=== PATIENT | female | born 1990 | race Caucasian/White ===

== ENCOUNTER → 2020-12-07 | Outpatient (REF) | payer OTHER ==
[2020-12-07 13:54] LABS: HEMATOCRIT 37.4 % (36.0-47.0); MEAN CORPUSCULAR HEMOGLOBIN 30.9 pg (27.0-33.0); MEAN CORPUSCULAR HGB CONC 32.1 g/dl (32.0-36.5); MEAN CORPUSCULAR VOLUME 96.4 fl (80.0-96.0); PLATELET COUNT, AUTOMATED 259 10^3/uL (150-450); RED BLOOD COUNT 3.88 10^6/uL (4.00-5.40); WHITE BLOOD COUNT 8.7 10^3/uL (4.0-10.0)
[2020-12-07 15:38] LABS: CHLAMYDIA DNA AMPLIFICATION NEGATIVE (NEGATIVE); GC DNA AMPLIFICATION NEGATIVE (NEGATIVE)
[2020-12-07 16:18] LABS: CREATININE,RANDOM URINE 18.1 MG/DL; TOTAL PROTEIN,RANDOM URINE < 5.0 MG/DL (0.0-12.0)
[2020-12-07 16:22] LABS: ALT/SGPT 12 U/L (12-78); BILIRUBIN,TOTAL 0.3 MG/DL (0.2-1.0); CREATININE FOR GFR 0.57 MG/DL (0.55-1.30); GLOMERULAR FILTRATION RATE > 60.0 (>60); GLUCOSE CHALLENGE TEST 1 HOUR 134 MG/DL (LESS THAN 140); LDH LACTATE DEHYDROGENASE 150 U/L (84-246)
[2020-12-07 17:14] LABS: HEPATITIS C VIRUS ABY INDEX < 0.0 INDEX (<0.8); HIV 1&2 SCREEN CENTAUR NEGATIVE (NEGATIVE)
== END ==
LOC: M PLALAB 08:38
PROVIDERS: ATTEND Advanced Practice Midwife
DX: O30.042 Twin pregnancy, dichorionic/diamniotic, second trimester (principal); Z3A.15 15 weeks gestation of pregnancy

== ENCOUNTER → 2020-12-07 | Outpatient (CLI) | payer OTHER ==
--- NOTE | 2020-12-07 09:03 | REP ---
INDICATION: TWIN GESTATION,DATING Twin gestation. COMPARISON: None. TECHNIQUE: Transabdominal obstetrical ultrasound with color Doppler evaluation FINDINGS: Examination demonstrates dichorionic diamniotic twin gestation. Cervix measures 3.0 cm in length and appears closed. Concordant growth is noted. Gestational age by LMP at 15 weeks 5 days with estimated date of delivery 05/26/2021. TWIN A: Twin A identified in transverse presentation. Placenta is noted posterior and grade 0 without evidence for placenta previa or abruption. motion is appreciated. FHR equals 149 beats per minute. BPD: 3.1 cm at 15 weeks; 5 days HC: 11.5 cm at 15 weeks; 4 days AC: 9.6 cm at 15 weeks; 5 days FL: 1.6 cm at 14 weeks; 5 days HL: 1.7 cm at 14 weeks; 5 days HC/AC ratio: 1.20 Gestational age by current measurements: 15 weeks 2 days. Estimated weight 119 grams (17th percentile). Limited anatomical assessment without obvious abnormality. TWIN B: Twin B identified in transverse presentation. Placenta is noted posterior and grade 0 without evidence for placenta previa or abruption. motion is appreciated. FHR equals 149 beats per minute. BPD: 3.1 cm at 15 weeks; 5 days HC: 11.5 cm at 15 weeks; 4 days AC: 9.6 cm at 15 weeks; 5 days FL: 1.6 cm at 14 weeks; 5 days HL: 1.7 cm at 14 weeks; 5 days HC/AC ratio: 1.20 Gestational age by current measurements: 15 weeks 2 days. Estimated weight 119 grams (17th percentile). Limited anatomical assessment without obvious abnormality. IMPRESSION: Diamniotic dichorionic twin gestation demonstrating appropriate concordant growth. No gross abnormalities are identified. Complete anatomical assessment should be performed at 19-20 weeks. <Electronically signed by Bandar Awad > 12/07/20 [id number]
== END ==
LOC: M WHC 08:09
PROVIDERS: ATTEND Advanced Practice Midwife
DX: O30.042 Twin pregnancy, dichorionic/diamniotic, second trimester (principal); Z3A.15 15 weeks gestation of pregnancy

== ENCOUNTER → 2020-12-13 | Outpatient (CLI) | payer OTHER | LOC: M LAB 07:34 | PROVIDERS: ATTEND Advanced Practice Midwife | DX: Z34.91 Encounter for supervision of normal pregnancy, unspecified, first trimester (principal); Z36.89 Encounter for other specified antenatal screening ==

== ENCOUNTER → 2020-12-14 | Outpatient (CLI) | payer OTHER | LOC: M WHC 15:32 | PROVIDERS: ATTEND Obstetrics & Gynecology | DX: O30.042 Twin pregnancy, dichorionic/diamniotic, second trimester (principal) ==

== ENCOUNTER → 2020-12-16 | Outpatient (CLI) | payer OTHER | LOC: M PLALAB 14:32 | PROVIDERS: ATTEND Obstetrics & Gynecology | DX: Z34.82 Encounter for supervision of other normal pregnancy, second trimester (principal); Z3A.00 Weeks of gestation of pregnancy not specified ==

== ENCOUNTER 2021-01-07 16:05 | Outpatient (CLI) | payer OTHER ==
[~2021-01-07] VITALS: Ht 165.1 cm; Wt 110.3 kg
[2021-01-07 16:18] VITALS: BP 104/59
[2021-01-07] MEDS ORDERED: PRENTAB9 PO (17:01)
[2021-01-07] MEDS ORDERED: MAPA500T2 PO (17:01)
[2021-01-07] MEDS ORDERED: ASPI81CH33 PO (17:01)
--- NOTE | 2021-01-07 17:07 | IPNPDOC ---
Text Note Date of Service The patient was seen on 01/07/21. NOTE Outpatient 30yo BERNADETTE 05/26/2021. Presents @ 20w1d with complaints of cramping and pink discharge when wiping. Known di/di gestation. Hx significant for 4th threatened PTL @ 22wks. Pt reports she was 4cm at that time. Ultimately delivered @ 33wks. Appears in no distress No obvious contractions on monitor Viable active di/di twin gestation on bedside sono. FH and FM x 2 Spec exam - cervix visually LTC. No evidence of bleeding. SVE - dimple, moderate/firm texture/ long and OOP. Urine C&S and stat sono with TVUS ordered. Will update Dr Parker. VS,Fishbone, I+O VS, Fishbone, I+O Vital Signs Date Time Temp Pulse Resp B/P (MAP) Pulse Ox O2 Delivery O2 Flow Rate FiO2 01/07/21 16:18 81 104/59 (74) Annita Frank CNM Jan 07, 2021 17:07
--- NOTE | 2021-01-07 18:56 | IPNPDOC ---
Text Note Date of Service The patient was seen on 01/07/21. NOTE Jiffy report reviewed with Dr Elena Jordan 4.4cm, closed. No funneling Pt reports vague irregular cramping at this time Discharged home. Routine precautions. Has appt next Sunday. Instructed pt to reschedule her anatomy scan next Sunday for 2-3 weeks for f /u. Pt verbalized understanding. VS,Fishbone, I+O VS, Fishbone, I+O Vital Signs Date Time Temp Pulse Resp B/P (MAP) Pulse Ox O2 Delivery O2 Flow Rate FiO2 01/07/21 16:18 81 104/59 (74) Annita Frank CNM Jan 07, 2021 18:56
--- NOTE | 2021-01-07 19:59 | REPVR ---
PROCEDURE INFORMATION: Exam: US Plus Detailed Evaluation, First Gestation, Transabdominal Exam date and time: 01/07/2021 5:20 PM Clinical indication: Lmp or gestational age (in weeks): 20 weeks 1 d; Other: Spotting; ; Additional info: Twin gestation, bleeding. Cervical length TECHNIQUE: Imaging protocol: Real time transabdominal uterus, including and maternal evaluation plus detailed anatomic examination with image documentation. First gestation. COMPARISON: No relevant prior studies available. FINDINGS: Gestation: Twin intrauterine gestation. Dichorionic/diamniotic. heart rate: Twin A: 157 bpm Presentation: Breech, left inferior. Placenta: Unremarkable. No subchorionic bleed. Placenta is posterior. Amniotic fluid: Amniotic fluid is normal for gestational age. ANATOMY: Brain parenchyma: Normal Midline falx: Normal Cerebellum: 2 cm. Normal Cerebral ventricles: 6 mm. Normal 3rd ventricle: Not visualized. 4th ventricle: Not visualized. Cisterna magna: Normal. Septum pellucidum: Not visualized. Coronal face including nose, lips and lens: Normal Upper lip and nose: Normal Neck: Normal Aortic arch: Obscured Heart four-chamber view, heart size and position- suboptimal. Heart three-vessel view: Not visualized Heart three-vessel trachea view: Not visualized Heart right ventricular outflow tract: Normal Heart left ventricular outflow tract: Normal superior and inferior vena cava: Not visualized diaphragm: Normal gallbladder: Not visualized liver: Normal as visualized kidneys: Normal renal arteries: Not visualized stomach: Normal urinary bladder: Normal Spine: Partially obscured. Spine shape and curvature: Partially obscured. Integrity soft tissue overlying spine: Partially obscured. Ribs: Partially obscured. Umbilical cord insertion site into the abdomen: normal Umbilical cord vessel number: Normal three-vessel cord Arms and hands: Normal Legs and feet: Normal abdominal wall: Normal external genitalia: Male BIOMETRY: Gestational age (AUA): 20 weeks 3 days Estimated due date (AUA): 05/26/2021 Estimated weight: 345 g Estimated weight percentile: Not calculated. Biparietal diameter: 20 weeks 6 days Head circumference: 20 weeks 4 days Abdominal circumference: 20 weeks 4 days Femur length: 20 weeks 0 days MATERNAL ANATOMY: Uterus: Unremarkable. Cervix: 4.4 cm, no funneling. Right adnexa: Ovary is obscured by overlying bowel gas. Left adnexa: Ovary is obscured by overlying bowel gas. IMPRESSION: Twin A- live intrauterine gestation. PROCEDURE INFORMATION: Exam: US US Transabdominal Plus Detailed Evaluation; Additional Gestations Exam date and time: 01/07/2021 5:20 PM Age: 30 years old Clinical indication: Lmp or gestational age (in weeks): 20 weeks 1 d; Other: Spotting; ; Additional info: Twin gestation, bleeding. Cervical length TECHNIQUE: Imaging protocol: Real-time transabdominal obstetrical ultrasound of the maternal pelvis and a first trimester with image documentation. COMPARISON: US OB<14WKS SINGLE OR 1ST GEST 12/07/2020 8:18 AM FINDINGS: GESTATION: Multifetal identity: Fetus B Heart rate: 149 bpm. Presentation: Transverse, head to maternal left lying superior intra right of twin A Placenta: Placenta is posterior grade 1 without evidence of previa. Dichorionic/ diamniotic Amniotic fluid: Amniotic fluid is normal for gestational age. Midline falx: Normal Cerebellum: Normal. 2 cm. Cisterna magna: Normal. 4.9 mm. Ventricles: Normal. 5.3 mm lateral ventricle Choroid plexus: Normal Septum pellucidum: Obscured by position. Upper lip and nose: Obscured by position. Heart four-chamber view, heart size and position: Obscured by position. Heart right ventricular outflow tract: Obscured by position. Heart left ventricular outflow tract: Obscured by position. Kidneys: Obscured by position. Stomach: Normal Bladder: Normal Umbilical cord and insertion: Normal Umbilical cord vessel number: Normal Spine: Obscured by position. Hands and feet: Normal Gender: Male BIOMETRY: Estimated gestational age: 19 weeks 5 days Estimated due date: 05/26/2021 Estimated weight: Not calculated. Biparietal diameter: 20 weeks 1 day Head circumference: 19 weeks 5 days Abdominal circumference: 19 weeks 4 days Femur length 19 weeks 2 days MATERNAL: Uterus: Unremarkable. Cervix: Cervical length is 4.4 cm, no funneling. IMPRESSION: Live twin gestation. Electronically signed by: Kira Rizvi On 01/07/2021 19:59:35 PM
== END 2021-01-07 19:00 | disposition home or self-care (01) ==
LOC: M LDO 16:05
PROVIDERS: ATTEND Advanced Practice Midwife
DX: O30.042 Twin pregnancy, dichorionic/diamniotic, second trimester (principal); O09.212 Supervision of pregnancy with history of pre-term labor, second trimester; O26.892 Other specified pregnancy related conditions, second trimester; R10.9 Unspecified abdominal pain; Z3A.20 20 weeks gestation of pregnancy
CPT/HCPCS: 76815; 76816; 76817; 87086; G0378; G0463

== ENCOUNTER → 2021-01-14 | Outpatient (CLI) | payer OTHER ==
[~2021-01-14] MED LIST: ASPI81CH33 PO; MAPA500T2 PO; PRENTAB9 PO
== END ==
LOC: M WHC 14:55
PROVIDERS: ATTEND Obstetrics & Gynecology
DX: O30.042 Twin pregnancy, dichorionic/diamniotic, second trimester (principal); Z3A.00 Weeks of gestation of pregnancy not specified

== ENCOUNTER → 2021-02-01 | Outpatient (CLI) | payer OTHER ==
--- NOTE | 2021-02-01 16:50 | REP ---
INDICATION: TWINS - ANATOMY. COMPARISON: 01/07/2021. TECHNIQUE: Real-time sonographic evaluation of the gravid uterus performed. FINDINGS: There is a living intrauterine twin gestation, diamniotic dichorionic. Estimated gestational age is23 weeks 5 days, EDC 05/26/2021. Today's measurements indicate appropriate concordant growth. Closed cervical length is measured at 3.2 cm. Fetus a: Presentation: Cephalic, left Placenta posterior, grade 1, without evidence of placenta previa. heart rate is recorded at 158 beats per minute. Amniotic fluid is subjectively normal. Biometry chart: BPD: 60 mm, 24 weeks 2 days, 63rd percentile. HC: 212 mm, 23 weeks 2 days, 36th percentile AC: 192 mm, 23 weeks 6 days, 55th percentile Femur length: 41 mm, 23 weeks 2 days, 39th percentile HC to AC ratio: 1.10, normal range 1.03-1.22. Estimated weight: 613g, 50th percentile. anatomy: Cranium: Grossly normal Lateral Ventricles/Choroid Plexus: Grossly normal Posterior Fossa/Cerebellum: Grossly normal Nose/lips/profile: Grossly normal Four chamber heart: Grossly normal Right ventricular outflow tract: Grossly normal Left ventricular outflow tract: Grossly normal Left-sided stomach: Grossly normal Kidneys: Grossly normal Bladder: Grossly normal Cord Insertion: Grossly normal 3 vessel cord: Grossly normal Spine: Grossly normal Fetus b: Presentation: Breech, right Placenta posterior, grade 1, without evidence of placenta previa. heart rate is recorded at 138 beats per minute. Amniotic fluid is subjectively normal. Biometry chart: BPD: 58 mm, 23 weeks 5 days, 50th percentile. HC: 204 mm, 22 weeks 4 days, 14th percentile AC: 178 mm, 22 weeks 5 days, 29th percentile Femur length: 38 mm, 22 weeks 1 days, 11th percentile HC to AC ratio: 1.14, normal range 1.03-1.22. Estimated weight: 512g, 30th percentile. anatomy: Cranium: Grossly normal Lateral Ventricles/Choroid Plexus: Grossly normal Posterior Fossa/Cerebellum: Grossly normal Nose/lips/profile: Grossly normal Four chamber heart: Grossly normal, echogenic intracardiac focus seen in the right ventricle. Right ventricular outflow tract: Grossly normal Left ventricular outflow tract: Grossly normal Left-sided stomach: Grossly normal Kidneys: Grossly normal Bladder: Grossly normal Cord Insertion: Grossly normal 3 vessel cord: Grossly normal Spine: Grossly normal IMPRESSION: Viable intrauterine twin gestation as above. <Electronically signed by Murray Patton > 02/01/21 [id number]
== END ==
LOC: M WHC 13:14
PROVIDERS: ATTEND Obstetrics & Gynecology
DX: O30.042 Twin pregnancy, dichorionic/diamniotic, second trimester (principal); Z3A.23 23 weeks gestation of pregnancy

== ENCOUNTER → 2021-02-07 | Outpatient (REF) | payer OTHER | LOC: M PLALAB 14:41 | PROVIDERS: ATTEND Obstetrics & Gynecology | DX: Z3A.24 24 weeks gestation of pregnancy (principal) ==

== ENCOUNTER → 2021-02-24 | Outpatient (REF) | payer OTHER ==
[2021-02-24 18:24] LABS: HEMATOCRIT 34.2 % (36.0-47.0); MEAN CORPUSCULAR HEMOGLOBIN 30.8 pg (27.0-33.0); MEAN CORPUSCULAR HGB CONC 32.2 g/dl (32.0-36.5); MEAN CORPUSCULAR VOLUME 95.8 fl (80.0-96.0); PLATELET COUNT, AUTOMATED 287 10^3/uL (150-450); RED BLOOD COUNT 3.57 10^6/uL (4.00-5.40); WHITE BLOOD COUNT 10.5 10^3/uL (4.0-10.0)
== END ==
LOC: M PLALAB 15:53
PROVIDERS: ATTEND Obstetrics & Gynecology
DX: Z36.89 Encounter for other specified antenatal screening (principal); Z3A.24 24 weeks gestation of pregnancy

== ENCOUNTER → 2021-03-03 | Outpatient (CLI) | payer OTHER ==
--- NOTE | 2021-03-03 16:40 | REP ---
INDICATION: TWINS/GROWTH. COMPARISON: 02/01/2021 TECHNIQUE: Multiple sonographic images of the gravid uterus FINDINGS: There is a dichorionic diamniotic twin gestation. Twin a is in a breech presentation on the maternal left. Twin B is in a breech presentation on the maternal right. The placenta for Twin A is posterior. The placenta for twin B is posterior. Each placenta demonstrates grade 1 maturity. There is no previa for either twin A or twin B. Both twin A and twin B demonstrate a three-vessel cord. Cervix measures 3.4 cm. heart rate for twin A is 156 beats per minute heart rate for Twin B is 156 beats per minute. The major vertical amniotic fluid measurement for twin a is 5.8 cm and for twin B 6.2 cm. The composite ultrasound gestational age for twin A is 27 weeks 3 days and for twin B 27 weeks 2 days. weight for twin A is 1084 g corresponding to 2 lb, 6 oz. weight for twin B is 1010 g corresponding to 2 lb, 3 oz. BERNADETTE is 2020. Umbilical artery Doppler evaluation: Twin a: Umbilical artery 1: PSV 56.0 centimeters/second EDV 24.8 centimeters/second S/D 2.26 (2.09-4.03) RI 0.56 (0.55-0.78). Umbilical artery 2: PSV 34.6 centimeters/second EDV 12.2 centimeters/second S/D 2.84 RI 0.65 Twin B: Umbilical artery 1: PSV 33.3 centimeters/second EDV 9.7 centimeters/second S/D 3.43 RI 0.71 Umbilical artery 2: PSV 45.3 centimeters/second EDV 15.6 centimeters/second S/D 2.90 RI 0.66 IMPRESSION: dating and size as discussed above. <Electronically signed by Murray Butler > 03/03/21 [id number]
== END ==
LOC: M WHC 12:35
PROVIDERS: ATTEND Obstetrics & Gynecology
DX: O30.042 Twin pregnancy, dichorionic/diamniotic, second trimester (principal); O32.1XX1 Maternal care for breech presentation, fetus 1; O32.1XX2 Maternal care for breech presentation, fetus 2; Z3A.27 27 weeks gestation of pregnancy

== ENCOUNTER → 2021-03-31 | Outpatient (CLI) | payer OTHER ==
--- NOTE | 2021-03-31 10:17 | REP ---
INDICATION: GROWTH - TWINS COMPARISON: 03/03/2021 TECHNIQUE: Transabdominal obstetrical ultrasound with color Doppler evaluation. FINDINGS: Examination demonstrates dichorionic diamniotic twin live intrauterine . Gestational age by LMP 32 weeks 0 days with estimated date of delivery 05/26/2021. Cervix measures 3.5 cm and appears closed. TWIN A: Cephalic presentation towards left side of the uterus. heart rate equals 156 beats per minute. Placenta noted posteriorly and grade 1. Amniotic fluid volume deepest pocket: 5.2 cm Estimated weight by biometric measurements 1822 g (30th percentile) Umbilical artery SD ratio: 2.59, 3.13 (1.84-3.87) TWIN B: Cephalic presentation towards right side of the uterus. heart rate equals 140 beats per minute. Placenta noted posteriorly and grade 1. Amniotic fluid volume deepest pocket: 7.7 cm Estimated weight by biometric measurements 1681 g (14th percentile) Umbilical artery SD ratio: 2.96, 2.84 (1.84-3.87) IMPRESSION: Twin gestation demonstrating appropriate concordant interval growth. <Electronically signed by Bandar Awad > 03/31/21 1013
== END ==
LOC: M WHC 08:57
PROVIDERS: ATTEND Obstetrics & Gynecology
DX: O30.043 Twin pregnancy, dichorionic/diamniotic, third trimester (principal); Z3A.32 32 weeks gestation of pregnancy

== ENCOUNTER → 2021-04-21 | Outpatient (REF) | payer OTHER | LOC: M SFHCWAGY 16:34 | PROVIDERS: ATTEND Obstetrics & Gynecology | DX: O24.313 Unspecified pre-existing diabetes mellitus in pregnancy, third trimester (principal) ==

== ENCOUNTER 2021-04-23 15:34 | Outpatient (CLI) | payer OTHER ==
[~2021-04-23] VITALS: Ht 165.1 cm; Wt 160.0 kg
[2021-04-23 15:50] VITALS: BP 144/96
[2021-04-23] MEDS ORDERED: METF-839 PO (15:52)
[2021-04-23 16:06] VITALS: BP 123/75
--- NOTE | 2021-04-23 16:43 | IPNPDOC ---
Obstetrical Progress Note Date of Service April 23, 2021 Subjective 30yo at 35+2 weeks EGA with Di/Di twin gestation. Presents for a labor check. Reports increased vaginal discharge/dampness; started approximately 2 hours ago. No continuous loss of fluid or vaginal bleeding. Feels BH, but does not have any pain. Reports regular, frequent movement of both twins. ROS: No VALDEZ, visual changes, RUQ pain, sob, cp, n/v/f/c. 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 No fluid from os with valsalva x 2. Negative Nitrazine and ferning. SVE: 3-4 cm, 75 %, --3, cephalic, intact/bulging membranes US,tomlin: cephalic , cephalic. MVP A: 4cm (adjacent to head). MVP B: 3.5cm. EFM: Cat I / Reactive x both twins [place]: contractions every 3-5min; reported as nonpainful A/P: 30 yo at 35+2 weeks EGA. No evidence of active labor or ROM. Reassuring maternal and status. -Routine third trimester precautions given. -Follow up in office as scheduled. Alireza Parker DO FACOG. Objective Vital Signs Date Time Temp Pulse Resp B/P (MAP) Pulse Ox O2 Delivery O2 Flow Rate FiO2 04/23/21 16:06 98.6 80 18 123/75 (91) SCOOBY PARKER DO April 23, 2021 16:43
== END 2021-04-23 16:45 | disposition home or self-care (01) ==
LOC: M LDO 15:34
PROVIDERS: ATTEND Obstetrics & Gynecology
DX: O30.043 Twin pregnancy, dichorionic/diamniotic, third trimester (principal); Z3A.35 35 weeks gestation of pregnancy; O26.893 Other specified pregnancy related conditions, third trimester; N89.8 Other specified noninflammatory disorders of vagina; O24.113 Pre-existing type 2 diabetes mellitus, in pregnancy, third trimester
CPT/HCPCS: 59025; G0378; G0463

== ENCOUNTER → 2021-04-27 | Outpatient (CLI) | payer OTHER ==
[~2021-04-27] MED LIST changes: +METF-839 PO
--- NOTE | 2021-04-27 15:20 | REP ---
INDICATION: TWIN GESTATION,GROWTH COMPARISON: 03/31/2021 TECHNIQUE: Transabdominal obstetrical ultrasound with color Doppler evaluation. FINDINGS: Examination demonstrates dichorionic diamniotic twin live intrauterine . Selected gestational age: 35 weeks 6 days with estimated date of delivery 05/26/2021. TWIN A: Cephalic presentation towards left side of the uterus. heart rate equals 147 beats per minute. Placenta noted posteriorly and grade 2. Amniotic fluid volume deepest pocket: 4.7 cm Estimated weight by biometric measurements 2398 g 14th percentile Umbilical artery SD ratio: 2.12 (1.64-3.52) TWIN B: Breech presentation towards right side of the uterus. heart rate equals 155 beats per minute. Placenta noted posteriorly and grade 2. Amniotic fluid volume deepest pocket: 5.3 cm Estimated weight by biometric measurements 2287 g less than 3rd percentile Umbilical artery SD ratio: 3.50 (1.64-3.52) IMPRESSION: Twin B growth is somewhat less than expected. Remainder of the examination is normal. <Electronically signed by Bandar Awad > 04/27/21 [id number]
== END ==
LOC: M WHC 13:50
PROVIDERS: ATTEND Specialist
DX: O30.043 Twin pregnancy, dichorionic/diamniotic, third trimester (principal); Z3A.35 35 weeks gestation of pregnancy; O32.1XX2 Maternal care for breech presentation, fetus 2

== ENCOUNTER → 2021-05-01 | Outpatient (CLI) | payer OTHER | LOC: M LABSMTC 08:40 | PROVIDERS: ATTEND Anesthesiology | DX: Z01.812 Encounter for preprocedural laboratory examination (principal); Z20.822 Contact with and (suspected) exposure to COVID-19 ==

== ENCOUNTER 2021-05-07 09:58 | Inpatient (IN) | payer OTHER ==
[2021-05-07] VITALS (8 sets, daily range): BP systolic 109–149; BP diastolic 61–85
[~2021-05-07] VITALS: Ht 165.1 cm; Wt 118.0 kg
[2021-05-07] MEDS ORDERED: ZYRTTAB8 PO (10:58)
[2021-05-07] MEDS ORDERED: LACTATED RINGER'S 1000 ML IV STA (11:03)
[2021-05-07] MEDS ORDERED: OXYTOCIN DRIP 30 UNITS in IV 1 EA IV PRN (11:05)
[2021-05-07] MEDS ORDERED: LR 1,000 ML IV SCH (11:05)
[2021-05-07] MEDS ORDERED: METHYLERGONOVINE MALEATE 0.2 MG/ML VIAL (J2210) IM PRN (11:05)
[2021-05-07] MEDS ORDERED: miSOPROStol 50MCG 1/2 TABLET PV ONE (11:30)
[2021-05-07 11:41] LABS: HEMATOCRIT 30.7 % (36.0-47.0); HEMOGLOBIN 9.7 g/dl (12.0-15.5); MEAN CORPUSCULAR HEMOGLOBIN 27.4 pg (27.0-33.0); MEAN CORPUSCULAR HGB CONC 31.6 g/dl (32.0-36.5); MEAN CORPUSCULAR VOLUME 86.7 fl (80.0-96.0); PLATELET COUNT, AUTOMATED 202 10^3/uL (150-450); RED BLOOD COUNT 3.54 10^6/uL (4.00-5.40); WHITE BLOOD COUNT 8.5 10^3/uL (4.0-10.0)
[2021-05-07] MEDS ORDERED: FENTANYL 2MCG/ML ROPIVACAINE 0.2% IN 0.9% NACL 100ML IVBAG As Ordered ONE (12:04)
[2021-05-07] MEDS ORDERED: FENTANYL/ROPIVACAINE/NACL BAG 100 ML EPIDURAL SCH (12:45)
[2021-05-07] MEDS ORDERED: NALOXONE INJ 0.4MG/1ML VIAL (J2310 PER 1MG) IV PRN (12:45)
[2021-05-07] MEDS ORDERED: LACTATED RINGER'S 1000 ML IV PRN (12:45)
[2021-05-07] MEDS ORDERED: EPIDURAL/PCA KEYS XX PRN (12:45)
[2021-05-07] MEDS ORDERED: ONDANSETRON 4MG/2ML VIAL IV PRN (12:45)
[2021-05-07] MEDS ORDERED: ePHEDrine SULFATE 25 MG/5 ML(5MG/ML) SYRINGE IV PRN (12:45)
[2021-05-07] MEDS ORDERED: diphenhydrAMINE 50MG/ML VIAL (J1200) IV PRN (12:45)
[2021-05-07] MEDS ORDERED: EPIDURAL COMMENT XX SCH (12:45)
[2021-05-07] MEDS ORDERED: REFRIGERATOR IV KEYS XX PRN (12:45)
[2021-05-07] MEDS ORDERED: OXYTOCIN DRIP 30 UNITS in IV 1 EA IV SCH ×2 (13:25→18:15)
--- NOTE | 2021-05-07 14:42 | HPEPDOC ---
Obstetrical History & Physical General Date of Admission May 07, 2021 at 09:58 History of Present Illness Adrienne is a 30yo with di-di twins at 37w2d by lmp c/w 14wk u/s presen ting for scheduled IOL for IUGR of twin B (<3%ile, twin A is 14%ile) in the setting of pre-existing diabetes treated with metformin. She feels well with no complaints. No vaginal bleeding, loss of fluid. No regular/painful ctx. Feels good movement x2. Chief Complaint: Induction of labor Information Provided By: Patient Care Care: Good Care Dating Final EDC: May 26, 2021 Final EDC by: LMP, 2nd trimester (US) Antepartum Course Diagnos(e)s di-di twins, Pre-gestational diabetes by failed 3hr GTT started on metformin, obesity (starting BMI 39.77), mild right ventricular hypertrophy both twins possibly related to maternal DM (pediatric cardiology recommends non urgent echos after delivery) Past Medical History Past Obstetrical History : Past Obstetrical History: Multigravida (2010 37wk F pre-E, 2012 38wk F, 2015 38wk M (proven to 6#2), 2018 33wk F PTL/PTD, also sab x2 (1 w/ D&C), and an ETOP) 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: Abnormal Pap (ASCUS 2015, last pap wnl 2018), History of STD (gonorrhea) Past Medical History Medical History Pre-gestational diabetes by failed 3hr GTT started on metformin, former smoker (quit 07/2020), obesity (starting BMI 39.77) Surgical History: Denies/None Family History Significant Family History: No pertinent family hx Social History Marital Status: Family situation: Spouse/partner home Psychosocial History: No pertinent psych hx * Smoker: former Smoker Alcohol: Denies Drugs: denies Imunizations Tdap status: current Allergies Coded Allergies: No Known Allergies (Unverified , 01/07/21) Medications Scheduled Aspirin (Aspirin) 81 Mg Tab.chew, 1 TAB PO DAILY for pain Cetirizine HCl/Pseudoephedrine (Zyrtec-D Tablet) 1 Each Tab.er.12h, 1 TAB PO DAILY No.137/Iron/Folic Acd ( Vitamin Tablet) 1 Each Tablet, 1 TAB PO DAILY Scheduled PRN Acetaminophen (Mapap) 500 Mg Tablet, 1,000 MG PO PRN PRN for PAIN Miscellaneous Medications Metformin HCl (Metformin HCl) 500 Mg Tablet, 500 MG PO Physical Examination Physical Examination GENERAL: Alert and oriented times three. ABDOMEN: Gravid and non-tender to touch. FETUS: Twin A is vertex (VTX) by sterile vaginal examination (SVE), Twin B is breech by TAUS EXTREMITIES: No edema. Laboratory Data 24H LABS Laboratory Tests 2 05/07/21 10:21: Serology Scanned Report Hepatitis B Testing Pertinent Laboratoy Data Blood Type: A+ RBC Antibody Screen: Negative HIV: Negative Hepatitis B: Negative Hepatitis C: Negative Rapid Plasma Reagin: Nonreactive Rubella: Immune Chlamydia/Gonorrhea: Negative Group B Streptococcus: Negative Glucose Tolerance Test: 134 (3hr GTT 100/194/153/48) Anatomy Ultrasound Ultrasound Date: Feb 01, 2021 Placenta Location: Posterior (x2) Normal Anatomy: Yes Placenta Previa: No Other Ultrasounds 04/27/21: di-di twins, twin A cephalic, MVP 4.7cm, 14%ile. twin B breech, MVP 5.3cm, <3%ile Vaginal Examination Dilation: 5 cm Effacement: 70% Station: -2 Cervical Consistency: Medium Cervical Position: Middle Presentation: Cephalic presentation (A ceph/B breech (head in maternal RUQ)) Assessment Heart Rate (FHR): 130 (B: 140) Variability: Moderate (x2) Accelerations: Positive (x2) Decelerations: None Tocometer Contractions: Yes Frequency: irregular Duration: greater than 60 seconds Strength: palpated as mild Assessment/Plan Assessment Adrienne is a 30yo with di-di twins at 37w2d by lmp c/w early u/s presenting for scheduled IOL for IUGR of twin B (<3%ile, twin A is 14%ile) in the setting of pre-existing diabetes treated with metformin. Vitals wnl, benign exam. Reassuring assessment x2. A cephalic, B breech. SCE: /-2. GBS negative. Discussed patient getting epidural right away with plan for AROM +/- IV pitocin. Plan Admit and orient. District Administrator and consent. Patient has been counseled on delivery mode on various occasions. She was originally scheduled for PLTCS 2 days ago for breech presentation of twin B, but then she cancelled and requested IOL with either ECV of B after delivery of A to cephalic vs breech delivery of twin B. She is aware of the risks of breech presentation of twin B and desires to proceed with induction. Diet: clear liquids Group B Streptococcus (GBS) negative Labs and intravenous (IV) per unit protocol. Counseled on AROM, Pitocin and induction of labor (IOL). Lactated Ringers (LR): Bolus 1000 mL, then at 125 mL/hr. Anticipate normal spontaneous delivery () C-S as appropriate. Vivian Jalloh MD May 07, 2021 11:58
[2021-05-07] MEDS ORDERED: CHLOROPROCAINE PRES. FREE 3% 20ML VIAL As Ordered ONE (16:58)
[2021-05-07 17:59] LABS: CORD GAS ABE A -5.5; CORD GAS ABE V -4.6; CORD GAS HCO3 A 23.9 MEQ/L; CORD GAS HCO3 V 24.2 MEQ/L; CORD GAS PCO2 A 63.3 mmHg; CORD GAS PCO2 V 60.1 mmHg; CORD GAS PH A 7.195 UNITS; CORD GAS PH V 7.223 UNITS; CORD GAS TCO2 A 25.9 MEQ/L; CORD GAS TCO2 V 26.1 MEQ/L
[2021-05-07 18:02] LABS: CORD GAS O2 SAT A < 15.0 %; CORD GAS PO2 A < 10.0 mmHg
[2021-05-07] MEDS ORDERED: IBUPROFEN 600MG TAB PO PRN (18:15)
[2021-05-07] MEDS ORDERED: ACETAMINOPHEN TAB 650MG DOSE (2X325MG) PO PRN (18:15)
[2021-05-07] MEDS ORDERED: ACETAMINOPHEN 500 MG TAB PO PRN (18:15)
[2021-05-07] MEDS ORDERED: RHOGAM 300 MCG (1500 IU) INJ (J2790) IM SCH (18:15)
[2021-05-07] MEDS ORDERED: DOCUSATE SODIUM 100MG CAPSULE PO PRN (18:15)
[2021-05-07] MEDS ORDERED: MEASLES,MUMPS,RUBELLA VACCINE INJ (MMR-II) (90707) SC SCH (18:15)
[2021-05-07] MEDS ORDERED: DIBUCAINE 1% OINTMENT 30GM TOP PRN (18:15)
[2021-05-07] MEDS ORDERED: METAL LOCK LOOP XX ONE (18:22)
[2021-05-07] MEDS ORDERED: METHYLERGONOVINE MALEATE 0.2 MG/ML VIAL (J2210) ONE (18:27)
[2021-05-07] MEDS: IBUPROFEN 800 MG TAB PO PRN (19:12)
--- NOTE | 2021-05-07 19:14 | DNPDOC ---
[facility] Delivery Note Delivery Note DATE OF DELIVERY: 05/07/21 Time of Delivery: Twin A at 1717 Twin B at 1743 PREDELIVERY DIAGNOSIS: 37w2d di-di twins with IUGR of twin B (<3%ile) pre-existing diabetes treated with metformin Obesity starting BMI 39.77 POST DELIVERY DIAGNOSIS: Delivered. PROCEDURE: Spontaneous vaginal delivery twin A Unsuccessful external cephalic version of twin B Spontaneous BREECH vaginal delivery twin B STILL TENDER: Dr. Vivian Jalloh MD ANESTHESIA: epidural ESTIMATED BLOOD LOSS: 350 mL. FINDINGS: Twin A: 5 pound 8 ounce (2500g) male , Score 9/9, left compound hand Twin B: 5 pound 0 ounce (2260g) male infant, Score 2/7/9, breech presentation. Gases for twin B: pHa 7.195, BE -5.5. pHv 7.223, BE -4.6 DELIVERY SUMMARY: Adrienne is a 30yo [id number] s/p uncomplicated of di-di twin gestation at 37w2d- breech vaginal delivery of twin B after unsuccessful ECV. She had IOL started with AROM after epidural when she presented with SCE 5/75/-2. She quickly progressed with pitocin augmentation to C/C/0. At that time she was taken to the OR for delivery. When the team was ready and everything in place, patient was instructed to push and with just a few pushes, twin A's head delivered OA, restituted SHANIKA. Left compound hand noted. Right anterior shoulder delivered followed by posterior shoulder and corpus. Infant was vigorous with spontaneous cry, placed on maternal abdomen, apgars 9/9. Cord was clamped x2 and cut by FOB. then taken aside to warmer. At that point I reached up and palpated the presenting part of twin B which was double footling breech. At that time I went up next to the abdomen across from LASHAWN Vazquez who performed TAUS showing twin B's head to be in maternal RUQ. We attempted ECV a few times with LASHAWN Vazquez pushing the head downward and I pushed the pelvis upwards, but after a few attempts in each direction, it became obvious that we would not be successful in our ECV attempts. Between each attempt we ensured twin B's heart rate remained 150's. At that time I re-confirmed with the patient that she wanted to pursue vaginal breech delivery of twin B rather than proceeding to section. She confirmed that she did, in fact, desire to proceed with vaginal breech delivery. I waited for a robust contraction and then used an amniohook to perform amniotomy with clear fluid noted. I then briskly brought both feet down through the cervix and delivered the legs of twin B. I turned the baby so back was facing up and placed a blue towel around the delivered portion of the baby. I ensured there was a generous loop of cord below the baby. I asked the patient to push and the baby delivered to the level of the axilla. I then performed Lovset's maneuver on first the left arm followed by the right arm and again asked the patient to push. With two pushes, the head easily delivered. Baby was not immediately vigorous but the nursing team busily dried and stimulated baby, cord was clamped x2 and cut by FOB. Baby was then taken to the warmer for further resuscitation. Apgars were 2/7/9 and cord gases for twin B were pHa 7.195, BE -5.5. pHv 7.223, BE -4.6. I then performed fundal massage, eventually assisted by LASHAWN Vazquez, and the placentas delivered. IV pitocin was bolused per protocol. Sweep of lower uterine segment revealed nothing retained and bimanual massage ensured firm fundus and lower uterine segment. Patient was then given 0.2mg IM methergine as further insurance against future bleeding. Inspection of perineum and vagina revealed superficial periurethral lacerations repaired with 4-0 vicryl in figure of 8's with complete reapproximation and hemostasis. All counts were correct x2. Twin B was taken to NICU for a period of observation and twin A was doing well with patient and FOB when I left the room. MD Shubham Wyatt Katrina D MD May 07, 2021 18:59
[2021-05-08] MEDS: IBUPROFEN 800 MG TAB PO PRN ×2 (05:01→21:06)
[2021-05-08 05:02] VITALS: BP 120/79
[2021-05-08] MEDS ORDERED: PERCOCET 5MG/325MG TAB PO PRN (08:35)
--- NOTE | 2021-05-08 08:35 | IPNPDOC ---
Progress Note Date of Service: May 08, 2021 Day#: 1 Progress Note PPD 1 SUBJECT: Adrienne is a 30yo [id number] s/p uncomplicated of di-di twin gestation at 37w2d- breech vaginal delivery of twin B after unsuccessful ECV, doing well day # 1. She reports abdominal soreness related to the attempted ECV and desires something stronger than motrin for pain, also having strong cramps. She has been ambulating, voiding spontaneously without issue and tolerating regular diet. Bottle feeding by preference. Reports lochia is like a normal period. No f/c/n/v/CP/SOB. OBJECTIVE: VITAL SIGNS: Within normal limits, afebrile. Alert and oriented times three. Abdomen: Fundus firm at U-2. Soft, NTTP. Extremities: no pain with palpation of calves ASSESSMENT: Adrienne is a 30yo [id number] s/p uncomplicated of di-di twin gestation at 37w2d- breech vaginal delivery of twin B after unsuccessful ECV, doing well day # 1. Vitals within normal limits, afebrile, hemod ynamically stable with no evidence of infection. PLAN: 1. Routine care 2. Motrin with occasional percocet for pain. 3. Encourage ambulation. 4. Regular diet 5. Possible discharge home tomorrow if meeting all criteria Vivian Jalloh MD VS, I&O, 24H, [facility] Vital Signs/I&O Vital Signs Date Time Temp Pulse Resp B/P (MAP) Pulse Ox O2 Delivery O2 Flow Rate FiO2 05/08/21 05:02 97.4 60 16 120/79 (93) 99 I&O- Last 24 Hours up to 6 AM 05/08/21 06:00 Intake Total 2430 ml Output Total 600 ml Balance 1830 ml Laboratory Data 24H LABS Laboratory Tests 2 05/07/21 10:21: Serology Scanned Report Hepatitis B Testing 05/07/21 11:29: Nucleated Red Blood Cells % (auto) 0.0 05/07/21 17:48: Cord Arterial Blood pH 7.195, Cord Arterial Blood PCO2 63.3, Cord Arterial Blood PO2 < 10.0, Cord Arterial Blood HCO3 23.9, Cord Arterial Blood Total CO2 25.9, Cord Arterial Blood Base Excess -5.5, Cord Arterial Base Excess (Standard , Cord Arterial Bld Oxygen Saturation < 15.0, Cord Venous Blood pH 7.223, Cord Venous Blood PCO2 60.1, Cord Venous Blood PO2 , Cord Venous Blood HCO3 24.2, Cord Venous Blood Total CO2 26.1, Cord Venous Base Excess (Actual) -4.6, Cord Venous Base Excess (Standard) , Cord Venous Blood Oxygen Saturation CBC/BMP Laboratory Tests 05/07/21 11:29 Vivian Jalloh MD May 08, 2021 08:35
[2021-05-08] MEDS: PRENATAL VITAMINS CHEWABLE TABLET PO SCH (08:45)
[2021-05-08 18:00] VITALS: BP 126/83
[2021-05-09 06:00] VITALS: BP 132/82
--- NOTE | 2021-05-09 08:02 | IPNPDOC ---
Progress Note Date of Service: May 09, 2021 Day#: 2 Progress Note PPD 2 SUBJECT: Adrienne is a 30yo [id number] s/p uncomplicated of di-di twin gestation at 37w2d- breech vaginal delivery of twin B after unsuccessful ECV, doing well day # 2. She has some mild abdominal soreness related to the attempted ECV which was better controlled with percocet yesterday. She has been ambulating, voiding spontaneously without issue and tolerating regular diet. Bottle feeding by preference. Reports lochia is like a normal period. No f/c/n/v/CP/SOB. OBJECTIVE: VITAL SIGNS: Within normal limits, afebrile. Alert and oriented times three. Abdomen: Fundus firm at U-2. Soft, NTTP. Extremities: no pain with palpation of calves ASSESSMENT: Adrienne is a 30yo [id number] s/p uncomplicated of di-di twin gestation at 37w2d- breech vaginal delivery of twin B after unsuccessful ECV, doing well day # 2. Vitals within normal limits, afebrile, hemodynamically stable with no evidence of infection. PLAN: 1. Discharge to home today 2. Will Rx motrin with occasional percocet for pain. 3. Regular diet 4. 6wk PP visit at [facility], pt to call to schedule 5. Discussed return precautions 6. Vaginal rest and no heavy lifting 6 weeks 7. Desires BTL which we can discuss scheduling for at PP visit Vivian Jalloh MD VS, I&O, 24H, [facility] Vital Signs/I&O Vital Signs Date Time Temp Pulse Resp B/P (MAP) Pulse Ox O2 Delivery O2 Flow Rate FiO2 05/09/21 06:00 97.3 56 18 132/82 (99) 99 Room Air Vivian Jalloh MD May 09, 2021 08:02
[2021-05-09] MEDS ORDERED: IBUP80TA PO (08:04)
[2021-05-09] MEDS ORDERED: DOK1CAP7 PO (08:04)
[2021-05-09] MEDS ORDERED: PERCOCET PO (08:04)
--- NOTE | 2021-05-09 08:12 | DS.PDOC ---
Discharge Summary General Date of Admission May 07, 2021 at 09:58 Date of Discharge May 09, 2021 Attending Physician: Vivian Jalloh MD Discharge Summary PROCEDURES PERFORMED DURING STAY: spontaneous vaginal delivery for twin A, breech spontaneous vaginal delivery for twin B, unsuccessful ECV for twin B ADMITTING DIAGNOSES: 1. di-di twin gestation at 37w2d with breech and IUGR twin B DISCHARGE DIAGNOSES: 1. di-di twin gestation at 37w2d with breech and IUGR twin B 2. delivered COMPLICATIONS/CHIEF COMPLAINT: IOL. HISTORY OF PRESENT ILLNESS/HOSPITAL COURSE: Adrienne is a 30yo [id number] s/p uncomplicated of di-di twin gestation at 37w2d- breech vaginal delivery of twin B after unsuccessful ECV, doing well day # 2. She is meeting all milestones and highly desires discharge. Vitals within normal limits, afebrile, hemodynamically stable with no evidence of infection. DISCHARGE MEDICATIONS: Please see below. ALLERGIES: Please see below. PHYSICAL EXAMINATION ON DISCHARGE: VITAL SIGNS: Within normal limits, afebrile. Alert and oriented times three. Abdomen: Fundus firm at U-2. Soft, NTTP. Extremities: no pain with palpation of calves LABORATORY DATA: Please see below. DIET: regular DISPOSITION: home DISCHARGE INSTRUCTIONS: 1. Discharge to home today 2. Will Rx motrin with occasional percocet for pain. 3. Regular diet 4. 6wk PP visit at [facility], pt to call to schedule 5. Discussed return precautions 6. Vaginal rest and no heavy lifting 6 weeks 7. Desires BTL which we can discuss scheduling for at PP visit DISCHARGE CONDITION: Stable TIME SPENT ON DISCHARGE: Greater than 20 minutes. Vivian Jalloh MD Vital Signs/I&Os Vital Signs Date Time Temp Pulse Resp B/P (MAP) Pulse Ox O2 Delivery O2 Flow Rate FiO2 05/09/21 06:00 97.3 56 18 132/82 (99) 99 Room Air Discharge Medications Scheduled Cetirizine HCl/Pseudoephedrine (Zyrtec-D Tablet) 1 Each Tab.er.12h, 1 TAB PO DAILY, (Reported) No.137/Iron/Folic Acd ( Vitamin Tablet) 1 Each Tablet, 1 TAB PO DAILY, (Reported) Scheduled PRN Docusate Sodium (Dok) 100 Mg Capsule, 100 MG PO BIDP PRN for CONSTIPATION Ibuprofen (Ibuprofen) 800 Mg Tablet, 800 MG PO Q8HP PRN for PAIN LEVEL 6-10 Oxycodone/Acetaminophen (Oxycodone-Acetaminophen 5-325) 1 Each Tablet, 1 TAB PO Q4HP PRN for MODERATE PAIN (PS 5-7) Allergies Coded Allergies: No Known Allergies (Unverified , 01/07/21) Vivian Jalloh MD May 09, 2021 08:12
[2021-05-09] MEDS: PRENATAL VITAMINS CHEWABLE TABLET PO SCH (09:38)
[2021-05-09 18:04] VITALS: BP 137/77
== END 2021-05-09 18:33 | disposition home or self-care (01) | DRG 805 ==
LOC: M LDI 09:58 → M OBS 20:06
PROVIDERS: ADMIT Obstetrics & Gynecology; ATTEND Obstetrics & Gynecology
PROC: 10E0XZZ Delivery of Products of Conception, External Approach (ICD-10-PCS; principal; 2021-05-07)
PROC: 3E033VJ Introduction of Other Hormone into Peripheral Vein, Percutaneous Approach (ICD-10-PCS; 2021-05-07)
PROC: 10907ZC Drainage of Amniotic Fluid, Therapeutic from Products of Conception, Via Natural or Artificial Opening (ICD-10-PCS; 2021-05-07)
PROC: 0UQMXZZ Repair Vulva, External Approach (ICD-10-PCS; 2021-05-07)
DX: O30.043 Twin pregnancy, dichorionic/diamniotic, third trimester (principal); Z37.2 Twins, both liveborn; O24.12 Pre-existing type 2 diabetes mellitus, in childbirth; Z3A.37 37 weeks gestation of pregnancy; Z79.84 Long term (current) use of oral hypoglycemic drugs; O99.214 Obesity complicating childbirth; E66.9 Obesity, unspecified; Z68.39 Body mass index [BMI] 39.0-39.9, adult; Z87.891 Personal history of nicotine dependence; O64 Obstructed labor due to malposition and malpresentation of fetus; O64.8XX2 Obstructed labor due to other malposition and malpresentation, fetus 2; O71.82 Other specified trauma to perineum and vulva

== ENCOUNTER → 2021-06-17 | Outpatient (REF) | payer OTHER ==
[~2021-06-17] MED LIST changes: +DOK1CAP7 PO; +IBUP80TA PO; +PERCOCET PO; +ZYRTTAB8 PO
== END ==
LOC: M PLALAB 14:37
PROVIDERS: ATTEND Obstetrics & Gynecology
DX: Z86.32 Personal history of gestational diabetes (principal); Z53.9 Procedure and treatment not carried out, unspecified reason

== ENCOUNTER → 2021-07-18 | Outpatient (CLI) | payer OTHER ==
[~2021-07-18] MED LIST changes: +DOK1CAP4 PO; -DOK1CAP7 PO
[2021-07-18 14:27] LABS: FREE T4 1.09 NG/DL (0.76-1.46); THYROID STIMULATING HORMONE 0.755 uIU/ML (0.358-3.740)
--- NOTE | 2021-07-18 14:30 | REP ---
INDICATION: SWELLING/MASS/LUMP OF NECK PT NEEDS LABS AFTER US COMPARISON: None. TECHNIQUE: Patton scale and color evaluation of the thyroid gland using the linear high frequency transducer. FINDINGS: The thyroid gland is normal in contour, shape, size, and echogenicity. No nodule/mass or cystic abnormalities are appreciated. Right thyroid lobe measures 5.4 x 1.9 x 1.2 cm. Isthmus measures 1.7 mm in width. Left thyroid lobe measures 4.9 x 1.7 x 1.0 cm. IMPRESSION: Normal thyroid ultrasound. <Electronically signed by Bandar Awad > 07/18/21 [id number]
== END ==
LOC: M LAB 12:49
PROVIDERS: ATTEND Nurse Practitioner
DX: R22.1 Localized swelling, mass and lump, neck (principal)

== ENCOUNTER → 2021-08-27 | Outpatient (CLI) | payer OTHER | LOC: M LABSMTC 09:06 | PROVIDERS: ATTEND Obstetrics & Gynecology | DX: Z01.812 Encounter for preprocedural laboratory examination (principal); Z20.822 Contact with and (suspected) exposure to COVID-19 ==

== ENCOUNTER 2021-08-31 06:11 | Day surgery (SDC) | payer OTHER ==
[~2021-08-31] VITALS: Ht 167.6 cm; Wt 108.4 kg
[2021-08-31] MEDS ORDERED: MIDAZOLAM INJ 2MG/2ML VIAL (J2250 PER 1MG) As Ordered ONE (07:00)
[2021-08-31] MEDS ORDERED: fentaNYL 100 MCG/2 ML INJECTION (J3010) As Ordered ONE (07:01)
[2021-08-31] MEDS ORDERED: LIDOCAINE 2% 100MG/5ML SDV (FOR ANES.) As Ordered ONE (07:03)
[2021-08-31] MEDS ORDERED: ROCURONIUM BROMIDE 50 MG/5 ML VIAL As Ordered ONE (07:05)
[2021-08-31 07:08] LABS: HEMOGLOBIN 11.4 g/dl (12.0-15.5); MEAN CORPUSCULAR HEMOGLOBIN 29.9 pg (27.0-33.0); MEAN CORPUSCULAR HGB CONC 32.6 g/dl (32.0-36.5); MEAN CORPUSCULAR VOLUME 91.9 fl (80.0-96.0); PLATELET COUNT, AUTOMATED 290 10^3/uL (150-450); RED BLOOD COUNT 3.81 10^6/uL (4.00-5.40); WHITE BLOOD COUNT 6.2 10^3/uL (4.0-10.0)
[2021-08-31] MEDS ORDERED: SILVER NITRATE APPLICATOR As Ordered ONE (07:08)
[2021-08-31] MEDS ORDERED: BUPIVACAINE HCL 0.25% 10ML VIAL As Ordered ONE (07:08)
[2021-08-31 07:32] LABS: HCG, SERUM QUALITATIVE NEGATIVE (NEGATIVE)
[2021-08-31] MEDS ORDERED: ONDANSETRON 4MG/2ML VIAL As Ordered ONE (07:51)
[2021-08-31] MEDS ORDERED: METOCLOPRAMIDE INJ 10MG/2ML VIAL (J2765 PER 1) As Ordered ONE (07:51)
[2021-08-31] MEDS ORDERED: KETOROLAC 60MG 2ML VIAL As Ordered ONE (07:51)
[2021-08-31] MEDS ORDERED: dexameTHASONE 4 MG/ML 1ML VIAL (J1100 PER 1MG) As Ordered ONE (07:51)
[2021-08-31] MEDS ORDERED: ACETAMINOPHEN 1000MG 100ML IV BTL (OFIRMEV) (J0131 PER 10MG) As Ordered ONE (07:52)
[2021-08-31] MEDS ORDERED: SUGAMMADEX SODIUM 500 MG/5 ML VIAL (BRIDION) As Ordered ONE (08:02)
[2021-08-31] MEDS ORDERED: HYDROmorphone HCL 2 MG/ML 1ML VIAL As Ordered ONE (08:27)
[2021-08-31] MEDS ORDERED: propofoL 200 MG/20 ML VIAL As Ordered ONE (08:48)
--- NOTE | 2021-08-31 09:03 | ROOPDOC ---
[facility] Report Of Operation Report of Operation Date of procedure: 08/31/2021 Preoperative diagnosis: Satisfied parity. Postoperative diagnosis: Same Procedure: Laparoscopic bilateral salpingectomy Anesthesia: Gen. endotracheal Estimated blood loss 10 mL IV fluids replaced 700 mL lactated Ringer's Drains: In and out catheter 200 mL of urine Complications: None Preoperative antibiotics: None indicated Specimens: Bilateral fallopian tubes Intraoperative findings: Normal size, shape, contour of the uterus. Normal adnexa/ovaries bilaterally. Procedure: The patient was counseled and consented on the risks, benefits, indications, and alternatives of the procedure. Informed consent was obtained. She was taken to the operating room with an IV running. She was placed on the operating table in the dorsal supine position. Gen. anesthesia was administered and the airway was secured without any difficulty. A timeout was performed per protocol. She was prepared and draped in the normal sterile fashion. Attention was turned to the pelvis. The bladder was drained with in and out sterile catheter. A speculum was placed into the vagina with good visualization of the cervix. A single- tooth tenaculum was placed on the anterior lip of the cervix and downward traction was applied. The cervix was sequentially dilated with Elgin dilators up to a #16. A ZUMI uterine manipulator was placed without any difficulty. The single-tooth tenaculum was removed. The tenaculum sites were noted to be hemostatic. A sterile glove switch was performed. Attention was turned to the abdomen. A 5mm umbilical incision was made with the 11 blade. Through this incision, a Veress needle was placed into the intraperitoneal cavity. Intraperitoneal placement was confirmed with ease of flow of normal saline, a positive drop test and no return on aspiration. The opening pressure was 2 mmHg. The abdomen was insufflated with 2 L of CO2. The Veress needle was removed. A 5 mm laparoscopic trocar was placed under direct visualization without any difficulty, and intraperitoneal placement was confirmed. No incidental bleeding or injury was evident. The patient was placed in steep Trendelenburg. 2 additional laparoscopic port sites were placed through 5 mm incisions in the lower left quadrant. Each trocar/cannula was placed under direct visualization without any difficulty, incidental bleeding or injury. Attention was turned to the right fallopian tube. The right fallopian tube was followed out to the fimbriated end, grasped and elevated. The underlying mesosalpinx was sequentially clamped, coagulated and transected, until the level of the cornu was reached. At this level, the fallopian tube was clamped, coagulated and transected, thus amputating the fallopian tube. The fallopian tube was brought through the cannula without any difficulty and sent to pathology for permanent section. Attention was turned to the left fallopian tube. The left fallopian tube was followed out to the fimbriated end, grasped and elevated. The underlying mesosalpinx was sequentially clamped, coagulated and transected, until the level of the cornu was reached. At this level the fallopian tube was clamped, coagulated and transected, thus amputating the fallopian tube. The fallopian tube was brought to the cannula without any difficulty and sent to pathology for permanent section. Both right and left surgical sites were noted to be completely hemostatic. The gas was released from the abdomen. The patient was taken out of Trendelenburg position. The cannulas were removed. The skin incisions were closed with 4-0 Monocryl in subcuticular fashion and reinforced with Dermabond. The uterine manipulator was removed, the vagina was noted to be clear of any sponge or instrument. Sponge, needle and instrument counts were correct per protocol. The patient tolerated the entire procedure very well. She was transferred to the PACU in good and stable condition. DO CANDICE Zimmerman JONATHAN R. DO Aug 31, 2021 09:03
[2021-08-31] MEDS ORDERED: OXYC1TAB23 PO (09:04)
[2021-08-31] MEDS ORDERED: COLA100C5 PO (09:06)
[2021-08-31] MEDS ORDERED: IBUP80TA PO (09:06)
[2021-08-31] MEDS ORDERED: oxyCODONE 5MG TAB PO PRN (09:35)
[2021-08-31] MEDS ORDERED: LR 1,000 ML IV SCH ×2 (09:35)
[2021-08-31] MEDS ORDERED: fentaNYL 100 MCG/2 ML INJECTION (J3010) IV PRN (09:35)
[2021-08-31] MEDS ORDERED: ONDANSETRON 4MG/2ML VIAL IV PRN (09:35)
[2021-08-31 10:20] VITALS: BP 129/64
== END 2021-08-31 10:20 | disposition home or self-care (01) ==
LOC: M SDC 06:11
PROVIDERS: ATTEND Obstetrics & Gynecology
DX: Z30.2 Encounter for sterilization (principal); Z79.899 Other long term (current) drug therapy
CPT/HCPCS: 36415; 58661; 84703; 85027; 86850; 86900; 86901; 88302; J0131; J1100; J1170; J1885; J2250; J2405; J2765; J3010